=== PATIENT | female | born 1965 | race Caucasian/White ===

== ENCOUNTER 2022-04-27 10:47 | Emergency (ER) | payer BC ==
[2022-04-27] MEDS ORDERED: Sodium Chloride 0.9% 10 ML Syringe FLUSH PRN (11:31)
[2022-04-27] MEDS ORDERED: Sodium Chloride 0.9% 250 ML IV SCH (12:15)
== END 2022-04-27 12:45 | disposition home or self-care (01) ==
LOC: LB.ED 10:47
DX: U07.1 COVID-19 (principal); E86.0 Dehydration; Z95.0 Presence of cardiac pacemaker; Z28.310 Unvaccinated for COVID-19; Z79.899 Other long term (current) drug therapy; Z79.01 Long term (current) use of anticoagulants
CPT/HCPCS: 36415; 80053; 83735; 85025; 99281; 99284; J7050; U0002

== ENCOUNTER 2024-06-14 14:28 | Emergency (ER) | payer MEDICAID ==
[2024-06-14] MEDS: Albuterol/Ipratropium 3.0-0.5 MG/3 ML Neb Soln NEB SCH (14:55)
[2024-06-14] MEDS: Albuterol 0.083% 2.5 MG/3 ML Neb Soln NEB PRN (15:06)
[2024-06-14] MEDS ORDERED: Albuterol 6.7 GM Inhaler INH ONE (15:20)
[2024-06-14 15:52] VITALS: BP 109/74; PULSE 92
== END 2024-06-14 15:30 | disposition home or self-care (01) ==
LOC: LB.ED 14:28
DX: J45.21 Mild intermittent asthma with (acute) exacerbation (principal); I50.9 Heart failure, unspecified; E03.9 Hypothyroidism, unspecified; K21.9 Gastro-esophageal reflux disease without esophagitis; Z95.0 Presence of cardiac pacemaker; Z91.041 Radiographic dye allergy status; Z88.8 Allergy status to other drugs, medicaments and biological substances; Z79.01 Long term (current) use of anticoagulants; Z79.899 Other long term (current) drug therapy; Z79.890 Hormone replacement therapy; Z90.710 Acquired absence of both cervix and uterus
CPT/HCPCS: 94640; 99283; 99284; A9270-GY; J7620